=== PATIENT | female | born 1990 | race Caucasian/White ===

== ENCOUNTER 2023-03-06 18:36 | Emergency (ER) | payer OTHER ==
[~2023-03-06] VITALS: Ht 170.2 cm; Wt 56.7 kg
--- NOTE | 2023-03-06 19:08 | NUR ---
PT IN BED 12 BREATHING IS EVEN AND UNLABORED PRESENTS WITH COUGH. OTB [employer] REQUESTING COVID TEST TO RULE OUT COVID.
--- NOTE | 2023-03-06 19:09 | NUR ---
COVID SWAB COLLECTED AND SENT TO LAB.
--- NOTE | 2023-03-06 19:09 | NUR ---
[employer] AT BEDSIDE.
[2023-03-06 20:28] VITALS: BP 126/72
== END 2023-03-06 20:30 ==
LOC: ER 18:54
DX: J20.9 Acute bronchitis, unspecified (principal); F17.200 Nicotine dependence, unspecified, uncomplicated; Z20.822 Contact with and (suspected) exposure to COVID-19; Z60.2 Problems related to living alone
CPT/HCPCS: 99283; 87426; C9803